=== PATIENT | male | born 1980 | race Caucasian/White ===

== ENCOUNTER 2019-12-02 23:49 | Emergency (ER) | payer OTHER ==
[~2019-12-02] VITALS: Ht 167.6 cm; Wt 68.9 kg
--- NOTE | 2019-12-02 23:49 | NUR ---
AUNDREA MUÑOZ, PREBOOK. TAKEN TO CHAIR C
[2019-12-02 23:52] VITALS: BP 136/85
--- NOTE | 2019-12-03 | NUR ---
Dr. Martinez examining patient.
--- NOTE | 2019-12-03 00:15 | NUR ---
PT ASSESSMENT COMPLETED BY AARON , NO NURSING INTERVENTIONS NEEDED AT THIS TIME.
[2019-12-03 00:17] VITALS: BP 136/85
--- NOTE | 2019-12-03 00:17 | NUR ---
Patient discharged with v/s stable. Written and verbal after care instructions given and explained. Patient verbalized understanding. PT escorted out by [place] [employer]. All questions addressed prior to discharge. Advised to follow up with [employer]D.
== END 2019-12-03 00:17 ==
LOC: MED 23:49
DX: F15.10 Other stimulant abuse, uncomplicated (principal); Z02.89 Encounter for other administrative examinations; Z04.1 Encounter for examination and observation following transport accident; V89.2XXA Person injured in unspecified motor-vehicle accident, traffic, initial encounter; Y93.89 Activity, other specified; Y92.89 Other specified places as the place of occurrence of the external cause; Y99.8 Other external cause status
CPT/HCPCS: 99283